=== PATIENT | male | born 1975 | race Two or more races ===

== ENCOUNTER 2021-02-25 01:14 | Emergency (ER) | payer OTHER ==
[~2021-02-25] VITALS: Ht 180.3 cm; Wt 77.0 kg
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
[2021-02-25] MEDS ORDERED: FAMOTIDINE 20 MG TABLET PO ONE (01:30)
[2021-02-25] MEDS ORDERED: FAMOTIDINE 20 MG TABLET ONE (01:32)
[2021-02-25] MEDS ORDERED: hydrOXyzine 50MG TABLET ONE (01:32)
--- NOTE | 2021-02-25 01:50 | NUR ---
pt medicated per mar for allergic rxn. pt nad, resting on gurney, no change in condition, wctm.
[2021-02-25 02:05] VITALS: BP 141/82
--- NOTE | 2021-02-25 02:05 | NUR ---
Patient given discharge instructions and they have confirmed that they understand the instructions. Patient ambulatory with steady gait. NAD, all questions answered appropriately, denies additional needs at this time. No personal belongings left in room after discharge.
== END 2021-02-25 02:14 | disposition home or self-care (01) ==
LOC: ED 02:08
DX: T78.1XXA Other adverse food reactions, not elsewhere classified, initial encounter (principal)
CPT/HCPCS: 99284; J7512; Q0177